=== PATIENT | female | born 1950 | race Caucasian/White ===

== ENCOUNTER 2017-06-08 14:13 | Inpatient (IN) | payer OTHER, MEDICARE ==
[~2017-06-08] VITALS: Ht 162.6 cm; Wt 52.5 kg
[2017-06-08] VITALS (11 sets, daily range): BP systolic 103–147; BP diastolic 77–97; PULSE 80–148; RESP 16–18; TEMP 97.8–98.3; O2SAT 96–100
[~2017-06-08 14:13] MED LIST: CIPR500T4 PO; HYDR-3533 PO; TAB-TAB PO
--- NOTE | 2017-06-08 14:24 | PD ---
Physical Exam Date Seen by Provider: Jun 08, 2017 Time Seen by Provider: 14:22 Narrative 66 yo female here for eval of atrial fibrillation. Send by Dr Castillo for this. had EKG in office that confirmed diagnosis. no history of this. Send here for eval. Feels dizzy and weak. + palpitations. Vitals are stable in triage with exception of elevated HR. Awaiting bed placement. Data Data Last Documented VS Vital Signs Date Time Temp Pulse Resp B/P (MAP) Pulse Ox O2 Delivery O2 Flow Rate FiO2 06/08/17 14:18 98.3 145 16 147/97 (114) 97 Room Air Orders Orders Electrocardiogram (06/08/17 14:20) Basic Metabolic Panel (Bmp) (06/08/17 14:20) Ckmb (Isoenzyme) Profile (06/08/17 14:20) Complete Blood Count With Diff (06/08/17 14:20) Magnesium (Mg) (06/08/17 14:20) Prothrombin Time / Inr (Pt) (06/08/17 14:20) Act Partial Throm Time (Ptt) (06/08/17 14:20) Troponin I (06/08/17 14:20) Chest, Single Ap (06/08/17 14:20) MDM Medical Record Reviewed: Yes Supervised Visit with TRAVIS: Leeroy Finney Jun 08, 2017 14:23
[2017-06-08] MEDS ORDERED: SODIUM CHLORIDE 0.9% FLUSH 5 ML FLUSH IV FLUSH PRN (15:00)
[2017-06-08] MEDS ORDERED: DILTIAZEM HCL 25 MG/5 ML VIAL IV PUSH ONE (15:00)
--- NOTE | 2017-06-08 15:08 | PD ---
HPI Chief Complaint: Cardiac Complaint Time Seen by Provider: 14:48 Travel History International Travel<30 days: No Contact w/Intl Traveler<30days: No Traveled to known affect area: No History of Present Illness HPI 66-year-old female presents with shortness of breath that has been present over the past 2 weeks and worsening. She went to her diesel mechanic farm for her scheduled appointment and was found to be in atrial fibrillation with RVR and referred here. Dr. hernandez is her diesel mechanic farm and she follows with him for her mitral valve issue. She denies any chest pain or other concurrent complaints. She denies prior history of atrial fibrillation. She feels worse when she moves around. She denies other modifying factors. Quality is atrial fibrillation. Severity is tachycardic in the 150s. PFSH Past Medical History Cancer: Yes (SKIN) Cardiovascular Problems: Yes Diabetes: No Diminished Hearing: No Endocrine: No Gastrointestinal Disorders: Yes (POLYPS) Genitourinary: No Hepatitis: No Hiatal Hernia: No Immune Disorder: No Musculoskeletal: No Neurologic: Yes (EPILEPSY HX (20YRS NO INCIDENT)) Psychiatric: No Reproductive: No Respiratory: No Immunizations Current: Yes Thyroid Disease: No ?: Not : 3 Para: 3 Past Surgical History Abdominal Surgery: Yes (COLLECTOMY) Body Medical Devices: BOVINE MITRAL VALVE Cardiac Surgery: Yes (MVR) Joint Replacement: Yes (RIGHT HIP) Other Surgery: Yes Social History Alcohol Use: Yes (OCC.) Tobacco Use: No (QUIT 2009) Substance Use: No Allergies-Medications (Allergen,Severity, Reaction): Coded Allergies: No Known Allergies (Unverified , 06/08/17) Reported Meds & Prescriptions Reported Meds & Active Scripts Active Reported Multi-Vitamin Daily (Multiple Vitamin) 1 Tab Tab 1 Tab PO DAILY Review of Systems Except as stated in HPI: all other systems reviewed are Neg Physical Exam Narrative GENERAL: Well-nourished, well-developed patient. Well-appearing SKIN: Warm and dry. HEAD: Normocephalic and atraumatic. EYES: No injection or drainage. ENT: No nasal drainage noted. NECK: Supple, trachea midline. CARDIOVASCULAR: irregular rate and rhythm RESPIRATORY: Breath sounds equal bilaterally. No accessory muscle use. GASTROINTESTINAL: Abdomen soft, non-tender, nondistended. EXTREMITIES: No edema. NEUROLOGICAL: Awake and alert. Motor and sensory grossly within normal limits. Normal speech. Data Data Last Documented VS Vital Signs Date Time Temp Pulse Resp B/P (MAP) Pulse Ox O2 Delivery O2 Flow Rate FiO2 06/08/17 16:39 98.0 80 17 103/80 (88) 99 Room Air Orders Orders Electrocardiogram (06/08/17 14:20) Basic Metabolic Panel (Bmp) (06/08/17 14:20) Ckmb (Isoenzyme) Profile (06/08/17 14:20) Complete Blood Count With Diff (06/08/17:20) Magnesium (Mg) (06/08/17 14:20) Prothrombin Time / Inr (Pt) (06/08/17:20) Act Partial Throm Time (Ptt) (06/08/17:20) Troponin I (06/08/17:20) Chest, Single Ap (06/08/17 14:20) Ecg Monitoring (06/08/17 14:49) Blood Pressure (06/08/17 14:49) Iv Access Insert/Monitor (06/08/17 14:49) Oximetry (06/08/17 14:49) Vital Signs (06/08/17 14:49) Diltiazem Inj (Cardizem Inj) (06/08/17 15:00) Sodium Chloride 0.9% Flush (Ns Flush) (06/08/17 15:00) Thyroid Stimulating Hormone (06/08/17 15:08) CKMB (06/08/17 15:20) CKMB% (06/08/17 15:20) Admit Order (Ed Use Only) (06/08/17 17:19) Labs Laboratory Tests Test 06/08/17 15:20 White Blood Count 6.4 TH/MM3 Red Blood Count 4.85 MIL/MM3 Hemoglobin 14.9 GM/DL Hematocrit 45.6 % Mean Corpuscular Volume 94.1 FL Mean Corpuscular Hemoglobin 30.8 PG Mean Corpuscular Hemoglobin Concent 32.7 % Red Cell Distribution Width 13.7 % Platelet Count 272 TH/MM3 Mean Platelet Volume 9.3 FL Neutrophils (%) (Auto) 63.0 % Lymphocytes (%) (Auto) 27.4 % Monocytes (%) (Auto) 7.6 % Eosinophils (%) (Auto) 1.4 % Basophils (%) (Auto) 0.6 % Neutrophils # (Auto) 4.0 TH/MM3 Lymphocytes # (Auto) 1.8 TH/MM3 Monocytes # (Auto) 0.5 TH/MM3 Eosinophils # (Auto) 0.1 TH/MM3 Basophils # (Auto) 0.0 TH/MM3 CBC Comment DIFF FINAL Differential Comment Prothrombin Time 11.1 SEC Prothromb Time International Ratio 1.0 RATIO Activated Partial Thromboplast Time 27.1 SEC Blood Urea Nitrogen 20 MG/DL Creatinine 0.83 MG/DL Random Glucose 90 MG/DL Calcium Level 9.2 MG/DL Magnesium Level 2.1 MG/DL Sodium Level 143 MEQ/L Potassium Level 4.4 MEQ/L Chloride Level 109 MEQ/L Carbon Dioxide Level 28.9 MEQ/L Anion Gap 5 MEQ/L Estimat Glomerular Filtration Rate 69 ML/MIN Total Creatine Kinase 107 U/L Creatine Kinase MB 1.4 NG/ML Troponin I LESS THAN 0.02 NG/ML Thyroid Stimulating Hormone 3rd Gen 1.530 uIU/ML MDM Medical Decision Making Medical Screen Exam Complete: Yes Emergency Medical Condition: Yes Medical Record Reviewed: Yes (past history confirmed) Interpretation(s) EKG is A. fib at 150 without STEMI criteria, T-wave inversion inferiorly CBC & BMP Diagram 06/08/17 15:20 Calcium Level 9.2, Magnesium Level 2.1 Last 24 hours Impressions Chest X-Ray 06/08/17 1420 Signed Impressions: Service Date/Time: Thursday, June 08, 2017 14:56 - CONCLUSION: 1. Cardiomegaly. No acute pulmonary disease. Marty Gonzalez MD Differential Diagnosis A. fib, SVT, sinus tachycardia, electrolyte abnormality Narrative Course Will check blood work, EKG, chest x-ray and dose of Cardizem and reevaluate After 1 dose of Cardizem heart rate is in the 70s. We'll discuss with her diesel mechanic farm Patient agrees to admission Physician Communication Physician Communication dr ron states in hospital can be on cardizem 30mg every [address] hernandez's note start heparin dr watson agrees to admit Diagnosis Primary Impression: Atrial fibrillation with RVR Clarissa Marshall MD Jun 08, 2017 15:08
[2017-06-08] MEDS ORDERED: MULT-65 PO (15:31)
--- NOTE | 2017-06-08 15:33 | RADRPT ---
EXAM DATE/TIME: 06/08/2017 14:56 [facility] COMPARISON: No previous studies available for comparison. INDICATIONS : Chest pain. MEDICAL HISTORY : None. SURGICAL HISTORY : Mitral valve replacement. ENCOUNTER: Initial ACUITY: 1 day PAIN SCORE: 3/10 LOCATION: Bilateral chest FINDINGS: The cardiac silhouette is normal in transverse diameter. Median sternotomy wires are present. The antoni gs are free of acute parenchymal opacity. No effusions are identified. The aortic knob is prominent w ith tortuosity of the descending thoracic aorta. CONCLUSION: 1. Cardiomegaly. No acute pulmonary disease. Marty Gonzalez MD on June 08, 2017 at 15:28 Board Certified Radiologist. This report was verified electronically.
[2017-06-08 15:57] LABS: BASOPHIL % 0.6 % (0.0-2.0); EOSINOPHIL # 0.1 TH/MM3 (0-0.4); EOSINOPHIL % 1.4 % (0.0-4.0); HEMATOCRIT 45.6 % (35.0-46.0); HEMO FLAGS DIFF FINAL; LYMPH % 27.4 % (9.0-44.0); LYMPHOCYTE # 1.8 TH/MM3 (1.0-4.8); MEAN CELL VOLUME 94.1 FL (80.0-100.0); MEAN CORPUSCULAR HEMOGLOBIN 30.8 PG (27.0-34.0); MEAN CORPUSCULAR HGB CONC 32.7 % (32.0-36.0); MONO % 7.6 % (0.0-8.0); PLATELET COUNT 272 TH/MM3 (150-450); RED BLOOD COUNT 4.85 MIL/MM3 (4.00-5.30); RED CELL DISTRIBUTION WIDTH 13.7 % (11.6-17.2); WHITE BLOOD COUNT 6.4 TH/MM3 (4.0-11.0)
[2017-06-08 16:10] LABS: APTT (PATIENT) 27.1 SEC (24.3-30.1); PROTHROMBIN TIME - PATIENT 11.1 SEC (9.8-11.6)
[2017-06-08 16:32] LABS: ANION GAP 5 MEQ/L (5-15); BICARBONATE 28.9 MEQ/L (21.0-32.0); BLOOD UREA NITROGEN 20 MG/DL (7-18); CHLORIDE 109 MEQ/L (98-107); GLOMERULAR FILTRATION RATE 69 ML/MIN (>89); MAGNESIUM 2.1 MG/DL (1.5-2.5); POTASSIUM 4.4 MEQ/L (3.5-5.1); SODIUM (NA) 143 MEQ/L (136-145)
[2017-06-08 16:35] LABS: CREATINE KINASE 107 U/L (26-192)
[2017-06-08 16:50] LABS: CKMB 1.4 NG/ML (0.5-3.6)
[2017-06-08] MEDS ORDERED: BISACODYL 10 MG SUPP RECTAL PRN (17:30)
[2017-06-08] MEDS ORDERED: HEPARIN SODIUM - IV 10,000 UNITS/10 ML VIAL IV PUSH ONE (17:30)
[2017-06-08] MEDS ORDERED: LACTULOSE SYRUP 20 GM/30 ML CUP PO PRN (17:30)
[2017-06-08] MEDS ORDERED: SODIUM CHLORIDE 0.9% FLUSH 10 ML FLUSH IV FLUSH PRN (17:30)
[2017-06-08] MEDS ORDERED: SENNOSIDES 8.6 MG TAB PO PRN (17:30)
[2017-06-08] MEDS ORDERED: MAGNESIUM HYDROXIDE SUSP 30 ML CUP PO PRN (17:30)
[2017-06-08] MEDS ORDERED: NALOXONE HCL 0.4 MG/ML AMP IV PUSH PRN (17:30)
[2017-06-08] MEDS: HEPARIN-D5W 25,000 U/250 ML 250 ML IV PRN (18:14)
--- NOTE | 2017-06-08 18:14 | HHI.HP ---
[facility] Service [facility] Primary Care Physician Carlos Johns MD Admission Diagnosis afib with rvr Diagnoses: Chief Complaint: SOB Travel History International Travel<30 Days: No Contact w/Intl Traveler <30 Da: No Traveled to Known Affected Are: No History of Present Illness This is a 66-year-old female past history of atrial premature beats, mitral insufficiency/prolapse, ventricular premature beats, history of colon polyps, history of melanoma, and migraines who presented with atrial fibrillation with RVR. Patient was seen by Dr. Castillo today and was told to go to the ED due to atrial fibrillation with RVR. Patient stated that she had shortness of breathing for the past 2 weeks that described as intermittent, occurring with exertion, worsening over the past 2 weeks. She denies any chest pain, palpitations, lightheadedness or dizziness. Patient was found to have RVR in the 140s in the emergency department and was given a dose of Cardizem which her heart rate became normal. Past Family Social History Past Medical History History of atrial premature beats, history of ventricular premature beat, migraines, history of melanoma, history of colon polyps, mitral sufficiency/ prolapse Past Surgical History Colectomy, bovine mitral valvular placement, right hip surgery Reported Medications Multi-Vitamin Daily (Multiple Vitamin) 1 Tab Tab 1 Tab PO DAILY Allergies: Coded Allergies: No Known Allergies (Unverified , 06/08/17) Active Ordered Medications Current Medications Diltiazem HCl (Cardizem Inj) 14 mg BOLUS ONCE IV PUSH Last administered on 15:06; Start 06/08/17 at 15:00; Stop 06/08/17 at 15:01; Status DC IV Flush (NS Flush) 2 ml UNSCH PRN IV FLUSH FLUSH AFTER USING IV ACCESS Last administered on 06/08/17 15:07; Start 06/08/17 at 15:00 Heparin Sodium (Porcine) (Heparin Inj) 3,420 units ONCE ONCE IV PUSH ; Start 06/08/17 at 17:30; Stop 06/08/17 at 17:31; Status DC Heparin Sodium (Porcine) (Heparin Inj) 5,000 units UNSCH PRN IV PUSH APTT LESS THAN 25; Start 06/08/17 at 23:30 Heparin Sodium (Porcine) (Heparin Inj) 2,500 units UNSCH PRN IV PUSH APTT 25 TO 39; Start 06/08/17 at 23:30 Heparin Sodium/ Dextrose 250 ml @ 7 mls/hr TITRATE PRN IV Coagulation management; Start 06/08/17 at 17:30 Sodium Chloride (NS Flush) 2 ml UNSCH PRN IV FLUSH FLUSH AFTER USING IV ACCESS ; Start 06/08/17 at 17:30 Sodium Chloride (NS Flush) 2 ml BID IV FLUSH ; Start 06/08/17 at 21:00 Naloxone HCl (Narcan Inj) 0.4 mg UNSCH PRN IV PUSH SEE LABEL COMMENTS; Start 06/08/17 at 17:30 Senna/Docusate Sodium (Altagracia-Colace) 1 tab BID PO ; Start 06/08/17 at 21:00 Magnesium Hydroxide (Milk Of Magnesia Liq) 30 ml Q12H PRN PO MILD - MODERATE CONSTIPATION; Start 06/08/17 at 17:30 Sennosides (Senokot) 17.2 mg Q12H PRN PO MODERATE - SEVERE CONSTIPATION; Start 06/08/17 at 17:30 Bisacodyl (Dulcolax Supp) 10 mg DAILY PRN RECTAL SEVERE CONSITIPATION; Start 06/08/17 at 17:30 Lactulose (Lactulose Liq) 30 ml DAILY PRN PO SEVERE CONSITIPATION; Start 06/08 at 17:30 Family History Reviewed. Social History Patient stopped smoking 2009. Occasional drink alcohol. Denies any illicit drug use. Physical Exam Vital Signs Vital Signs Date Time Temp Pulse Resp B/P (MAP) Pulse Ox O2 Delivery O2 Flow Rate FiO2 06/08/17 16:39 98.0 80 17 103/80 (88) 99 Room Air 06/08/17 15:14 84 17 112/85 (94) 98 Room Air 06/08/17 15:05 97.8 148 17 120/94 (103) 100 Room Air 06/08/17 15:05 17 99 Room Air 06/08/17 15:05 17 98 Room Air 06/08/17 15:05 148 17 98 Room Air 06/08/17 14:18 98.3 145 16 147/97 (385) 97 Room Air Physical Exam GENERAL: This is a well-nourished, well-developed patient, in no apparent distress. SKIN: No rashes, ecchymoses or lesions. Cool and dry. HEAD: Atraumatic. Normocephalic. No temporal or scalp tenderness. EYES: Pupils equal round and reactive. Extraocular motions intact. No scleral icterus. No injection or drainage. ENT: Nose without bleeding, purulent drainage or septal hematoma. Throat without erythema, tonsillar hypertrophy or exudate. Uvula midline. Airway patent. NECK: Trachea midline. No JVD or lymphadenopathy. Supple, nontender, no meningeal signs. CARDIOVASCULAR: Irregular rate and irregular rhythm without murmurs, gallops, or rubs. RESPIRATORY: Clear to auscultation. Breath sounds equal bilaterally. No wheezes , rales, or rhonchi. GASTROINTESTINAL: Abdomen soft, non-tender, nondistended. No hepato-splenomegaly , or palpable masses. No guarding. MUSCULOSKELETAL: Extremities without clubbing, cyanosis, or edema. No joint tenderness, effusion, or edema noted. No calf tenderness. Negative Homans sign bilaterally. NEUROLOGICAL: Awake and alert. Cranial nerves II through XII intact. Motor and sensory grossly within normal limits. Five out of 5 muscle strength in all muscle groups. Normal speech. Laboratory Laboratory Tests Test 06/08/17 15:20 White Blood Count 6.4 Red Blood Count 4.85 Hemoglobin 14.9 Hematocrit 45.6 Mean Corpuscular Volume 94.1 Mean Corpuscular Hemoglobin 30.8 Mean Corpuscular Hemoglobin Concent 32.7 Red Cell Distribution Width 13.7 Platelet Count 272 Mean Platelet Volume 9.3 Neutrophils (%) (Auto) 63.0 Lymphocytes (%) (Auto) 27.4 Monocytes (%) (Auto) 7.6 Eosinophils (%) (Auto) 1.4 Basophils (%) (Auto) 0.6 Neutrophils # (Auto) 4.0 Lymphocytes # (Auto) 1.8 Monocytes # (Auto) 0.5 Eosinophils # (Auto) 0.1 Basophils # (Auto) 0.0 CBC Comment DIFF FINAL Differential Comment Prothrombin Time 11.1 Prothromb Time International Ratio 1.0 Activated Partial Thromboplast Time 27.1 Blood Urea Nitrogen 20 Creatinine 0.83 Random Glucose 90 Calcium Level 9.2 Magnesium Level 2.1 Sodium Level 143 Potassium Level 4.4 Chloride Level 109 Carbon Dioxide Level 28.9 Anion Gap 5 Estimat Glomerular Filtration Rate 69 Total Creatine Kinase 107 Creatine Kinase MB 1.4 Troponin I LESS THAN 0.02 Thyroid Stimulating Hormone 3rd Gen 1.530 Result Diagram: 06/08/17 15206/08/171519 Nurarini VTE Risk Assessment Caprini VTE Risk Assessment: Mod/High Risk (score >= 2) Caprini Risk Assessment Model Point Value = 1 Point Value = 2 Point Value = 3 Point Value = 5 Age 41-60 Minor surgery BMI > 25 kg/m2 Swollen legs Varicose veins or History of unexplained or recurrent spontaneous Oral contraceptives or hormone replacement Sepsis (< 1 month) Serious lung disease, including pneumonia (< 1 month) Abnormal pulmonary function Acute myocardial infarction Congestive heart failure (< 1 month) History of inflammatory bowel disease Medical patient at bed rest Age 61-74 Arthroscopic surgery Major open surgery (> 45 min) Laparoscopic surgery (> 45 min) Malignancy Confined to bed (> 72 hours) Immobilizing plaster cast Central venous access Age >= 75 History of VTE Family history of VTE Factor V Leiden Prothrombin [id number] Lupus anticoagulant Anticardiolipin antibodies Elevated serum homocysteine Heparin-induced thrombocytopenia Other congenital or acquired thrombophilia Stroke (< 1 month) Elective arthroplasty Hip, pelvis, or leg fracture Acute spinal cord injury (< 1 month) Prophylaxis Regimen Total Risk Factor Score Risk Level Prophylaxis Regimen 0-1 Low Early ambulation 2 Moderate Order ONE of the following: *Sequential Compression Device (SCD) *Heparin 5000 units SQ BID 3-4 Higher Order ONE of the following medications: *Heparin 5000 units SQ TID *Enoxaparin/Lovenox 40 mg SQ daily (WT < 150 kg, CrCl > 30 mL/min) *Enoxaparin/Lovenox 30 mg SQ daily (WT < 150 kg, CrCl > 10-29 mL/min) *Enoxaparin/Lovenox 30 mg SQ BID (WT < 150 kg, CrCl > 30 mL/min) AND/OR *Sequential Compression Device (SCD) 5 or more Highest Order ONE of the following medications: *Heparin 5000 units SQ TID (Preferred with Epidurals) *Enoxaparin/Lovenox 40 mg SQ daily (WT < 150 kg, CrCl > 30 mL/min) *Enoxaparin/Lovenox 30 mg SQ daily (WT < 150 kg, CrCl > 10-29 mL/min) *Enoxaparin/Lovenox 30 mg SQ BID (WT < 150 kg, CrCl > 30 mL/min) AND *Sequential Compression Device (SCD) Assessment and Plan Assessment and Plan This is 66-year-old female who presented with intermittent dyspnea for the past 2 weeks done atrial fibrillation with RVR Atrial fibrillation with RVR -Patient given a dose of Cardizem in the ED in which her rate became normal. First set of cardiac enzymes negative. -Will get 2 more sets of cardiac enzymes and echo. Monitor over telemetry. -Per Dr. Tenorio start patient on Cardizem 30 mg every [address] Jonathan baptiste patient on a heparin drip. -Consult placed for client service consultant. Intermittent dyspnea -Chest x-ray shows cardiomegaly. Patient is not hypoxic. Resolved when her heart rate was controlled. Most likely secondary to age fibrillation with RVR. -See treatment as above. -Will continue monitor clinically. DVT prophylaxis -Patient will be on a heparin drip. Patient educated extensively on diagnosis, prognosis, and management. Discussed Condition With patient Physician Certification 2 Midnight Certification Type: Admission for Inpatient Services Order for Inpatient Services The services are ordered in accordance with Medicare regulations or non- Medicare payer requirements, as applicable. In the case of services not specified as inpatient-only, they are appropriately provided as inpatient services in accordance with the 2-midnight benchmark. Estimated LOS (days): 2 2 days is the estimated time the patient will need to remain in the hospital, assuming treatment plan goals are met and no additional complications. Post-Hospital Plan: Merna Pires MD Jun 08, 2017 18:14
[2017-06-08] MEDS: SODIUM CHLORIDE 0.9% FLUSH 10 ML FLUSH IV FLUSH SCH (21:00)
[2017-06-08] MEDS: DOCUSATE SODIUM 50 MG/SENNA 8.6 MG TAB PO SCH (21:00)
[2017-06-08] MEDS ORDERED: HEPARIN SODIUM - IV 10,000 UNITS/10 ML VIAL IV PUSH PRN ×2 (23:30)
[2017-06-09] VITALS (25 sets, daily range): BP systolic 109–148; BP diastolic 72–103; PULSE 62–114; RESP 18–20; TEMP 97.7–98.1; O2SAT 93–97
[2017-06-09 00:20] LABS: APTT (PATIENT) 66.3 SEC (24.3-30.1)
[2017-06-09 00:46] LABS: CREATINE KINASE 72 U/L (26-192)
[2017-06-09 06:27] LABS: APTT (PATIENT) 55.5 SEC (24.3-30.1)
[2017-06-09] MEDS: SODIUM CHLORIDE 0.9% FLUSH 10 ML FLUSH IV FLUSH SCH ×2 (08:02→21:00)
[2017-06-09] MEDS: DOCUSATE SODIUM 50 MG/SENNA 8.6 MG TAB PO SCH ×2 (08:02→21:00)
--- NOTE | 2017-06-09 10:30 | HHI.PR ---
Subjective Remarks Follow-up for age of fibrillation with RVR This morning patient had heart rate in the 140s. She was very upset and did not know that she would be in the hospital this long. She stated that if she knew she was going to be in the hospital for this long she would have made arrangement for her pets. Patient stated that she is upset that she did not get her echo done last night after being told by the ER that she would have this done. She stated that being in the hospital is making her more anxious and is not good for her health. Patient stated that if she is not see a dealer account manager soon she will leave. Patient's nurse is at the bedside during the interview. She denies any chest pain, palpitation, shortness of breathing, lightheadedness/ dizziness. Objective Vitals Vital Signs Date Time Temp Pulse Resp B/P (MAP) Pulse Ox O2 Delivery O2 Flow Rate FiO2 06/09/17 08:09 97.8 97 20 148/85 (106) 96 06/09/17 07:37 92 06/09/17 06:00 88 06/09/17 05:00 78 06/09/17 04:00 74 06/09/17 03:00 91 06/09/17 03:00 97.9 95 18 133/92 (106) 95 06/09/17 02:00 81 06/09/17 01:00 88 06/09/17 00:00 79 06/08/17 23:00 86 06/08/17 23:00 98.1 91 18 136/97 (110) 96 06/08/17 22:00 82 06/08/17 21:11 91 18 121/83 (96) 98 06/08/17 21:00 88 06/08/17 20:00 98 06/08/17 19:00 92 06/08/17 18:30 97.8 81 16 109/77 (88) 98 06/08/17 16:39 98.0 80 17 103/80 (88) 99 Room Air 06/08/17 15:14 84 17 112/85 (94) 98 Room Air 06/08/17 15:05 97.8 148 17 120/94 (103) 100 Room Air 06/08/17 15:05 17 99 Room Air 06/08/17 15:05 17 98 Room Air 06/08/17 15:05 148 17 98 Room Air 06/08/17 14:18 98.3 145 16 147/97 (114) 97 Room Air I/O 06/08/17 06/08/17 06/08/17 06/09/17 06/09/17 06/09/17 07:00 15:00 23:00 07:00 15:00 23:00 Intake Total 280 ml Balance 280 ml Intake Oral 280 ml # Voids 3 Result Diagram: 06/08/17 1520 06/08/17 1520 Objective Remarks GENERAL: in NAD but very anxious and upset. CARDIOVASCULAR: Irregular rate irregular rhythm without murmurs, gallops, or rubs. RESPIRATORY: Breath sounds equal bilaterally. No accessory muscle use. GASTROINTESTINAL: Abdomen soft, non-tender, nondistended. MUSCULOSKELETAL: No cyanosis, or edema. BACK: Nontender without obvious deformity. No CVA tenderness. Medications and IVs Current Medications Diltiazem HCl (Cardizem Inj) 14 mg BOLUS ONCE IV PUSH Last administered on 15:06; Start 06/08/17 at 15:00; Stop 06/08/17 at 15:01; Status DC IV Flush (NS Flush) 2 ml UNSCH PRN IV FLUSH FLUSH AFTER USING IV ACCESS Last administered on 06/08/17 15:07; Start 06/08/17 at 15:00 Heparin Sodium (Porcine) (Heparin Inj) 3,420 units ONCE ONCE IV PUSH Last administered on 06/08/17 18:12; Start 06/08/17 at 17:30; Stop 06/08/17 at 17 :31; Status DC Heparin Sodium (Porcine) (Heparin Inj) 5,000 units UNSCH PRN IV PUSH APTT LESS THAN 25; Start 06/08/17 at 23:30 Heparin Sodium (Porcine) (Heparin Inj) 2,500 units UNSCH PRN IV PUSH APTT 25 TO 39; Start 06/08/17 at 23:30 Heparin Sodium/ Dextrose 250 ml @ 7 mls/hr TITRATE PRN IV Coagulation management Last administered on 06/08/17 18:14; Start 06/08/17 at 17:30 Sodium Chloride (NS Flush) 2 ml UNSCH PRN IV FLUSH FLUSH AFTER USING IV ACCESS ; Start 06/08/17 at 17:30 Sodium Chloride (NS Flush) 2 ml BID IV FLUSH ; Start 06/08/17 at 21:00 Naloxone HCl (Narcan Inj) 0.4 mg UNSCH PRN IV PUSH SEE LABEL COMMENTS; Start 06/08/17 at 17:30 Senna/Docusate Sodium (Altagracia-Colace) 1 tab BID PO ; Start 06/08/17 at 21:00 Magnesium Hydroxide (Milk Of Magnesia Liq) 30 ml Q12H PRN PO MILD - MODERATE CONSTIPATION; Start 06/08/17 at 17:30 Sennosides (Senokot) 17.2 mg Q12H PRN PO MODERATE - SEVERE CONSTIPATION; Start 06/08/17 at 17:30 Bisacodyl (Dulcolax Supp) 10 mg DAILY PRN RECTAL SEVERE CONSITIPATION; Start 06/08/17 at 17:30 Lactulose (Lactulose Liq) 30 ml DAILY PRN PO SEVERE CONSITIPATION; Start 06/08 at 17:30 A/P Assessment and Plan This is 66-year-old female who presented with intermittent dyspnea for the past 2 weeks done atrial fibrillation with RVR Atrial fibrillation with RVR -Patient given a dose of Cardizem in the ED in which her rate became normal. So far cardiac enzymes negative. Pending 2-D echo. -Telemetry showed patient had tachycardia in the 140s around 9. -Patient on Cardizem scheduled. She is on heparin drip per recommendations of dealer account manager. -Pending dealer account manager's recommendation. Intermittent dyspnea -Chest x-ray shows cardiomegaly. Patient is not hypoxic. Resolved when her heart rate was controlled. Most likely secondary to age fibrillation with RVR. -See treatment as above. -Will continue monitor clinically. DVT prophylaxis -Patient will be on a heparin drip. Discussed with patient's nurse. A call was placed to echo to try to expedite completion of ECHO and a call was placed out to dealer account manager. Patient educated extensively on her diagnosis, management and prognosis. Merna Franklin MD Jun 09, 2017 10:30
[2017-06-09] MEDS ORDERED: ASPIRIN EC 325 MG TABEC PO SCH (13:45)
--- NOTE | 2017-06-09 14:01 | MB ---
cc: BRAD CASTILLO M.D., GLENN H. M.D. DATE OF CONSULTATION: 06/09/2017 REASON FOR CONSULTATION Atrial fibrillation. HISTORY OF PRESENT ILLNESS The patient is a 66-year-old white female, followed in our office by Dr. Brad Castillo, with a history of mitral valve repair 2009 for severe mitral regurgitation, migraine headaches, melanoma, rheumatic fever, who was sent to the hospital from Dr. Castillo's office yesterday after she was found to be in atrial fibrillation with a rapid ventricular response. For the past 2 weeks she has noted increased dyspnea on exertion as well as intermittent racing pounding palpitations with exertion. She denies any chest pains, syncope, nearsyncope, pedal edema. At times she feels mildly lightheaded for a few seconds. For the most part she is very active. PAST MEDICAL HISTORY 1. History of mitral valve repair 2009 for severe mitral regurgitation. 2. Migraine headaches. 3. History of malignant melanoma. 4. History of rheumatic fever. MEDICATIONS Her cardiac medications at home are none. ALLERGIES No known drug allergies. FAMILY HISTORY Noncontributory. SOCIAL HISTORY The patient quit smoking about 7 years ago. She denies alcohol abuse. REVIEW OF SYSTEMS Review of systems as in the history of present illness, otherwise negative or noncontributory. She also denies melena, dyspepsia, bright red blood per rectum. Occasionally she experiences mild headaches. PHYSICAL EXAMINATION VITAL SIGNS: On physical examination her blood pressure is 148/85 with a pulse of 97, respirations 20. GENERAL: In general she is a well-developed thin white female in no acute distress. HEENT/NECK: Jugular venous pressure is normal. Carotid pulses are 2+ bilaterally without bruits. CHEST: Examination of the chest reveals unlabored respiratory effort with clear lung billings. CARDIAC: On cardiac examination she has an irregularly irregular rhythm without S3 or murmur. ABDOMEN: On abdominal examination she has a soft, nontender abdomen. Bowel sounds are present. There is no definite hepatosplenomegaly. EXTREMITIES: Examination of the extremities reveals no clubbing, cyanosis or edema. LABORATORY Laboratory data includes normal CBC, potassium 4.4, BUN 20, creatinine 0.83, CK 107, troponin less than 0.02, TSH 1.53, INR 1.0. IMAGING Chest x-ray shows no acute disease. EKG EKG shows atrial fibrillation with a rapid ventricular response, nonspecific inferior T-wave abnormalities, rightward axis. IMPRESSION Newly diagnosed atrial fibrillation in this 66-year-old white female with a history of rheumatic mitral valve disease, status post mitral valve repair about 7 years ago and history of migraine headaches. At this time she remains in atrial fibrillation, although with much improved heart rates. There is no definite evidence for acute coronary syndrome. No ischemic ST-segment or T-wave changes are seen on EKG. Cardiac enzymes are negative for myocardial infarction. Echocardiogram is pending. With respect to her thromboembolic risk, it is probably overall low although she does have a history of rheumatic valvular disease. The patient denies any history of hypertension, diabetes, CVA, congestive heart failure. RECOMMENDATIONS 1. Start oral Cardizem 240 mg daily. 2. Await her 2-D echo. MD CONY Jackson/JOSIANE /1:25 PM /1:47 PM MTDTamara
[2017-06-09] MEDS: DILTIAZEM-CD 240 MG CAP ER PO SCH (14:45)
--- NOTE | 2017-06-09 17:43 | ECHRPT ---
Indication: Atrial Fib CONCLUSIONS The left ventricular systolic function is low normal with an estimated ejection fraction of 50%. Normal left ventricular size. Wall thickness is normal. No regional wall motion abnormalities are present. Severe thickening of the mitral valve leaflets. Mild mitral valve regurgitation. . Mild mitral valve stenosis. Aortic valve sclerosis is present. Trace aortic valve regurgitation. There is mild tricuspid valve regurgitation. The estimated pulmonary arterial pressure is 26 mmHg. Trivial pulmonary valve regurgitation. BP: 133 / 92 HR: 95 Rhythm: Sinus MEASUREMENTS (Male / Female) Normal Values Technical Quality:Good 2D ECHO LV Diastolic Diameter PLAX 4.2 cm 4.2 - 5.9 / 3.9 - 5.3 cm LV Systolic Diameter PLAX 3.0 cm IVS Diastolic Thickness 1.0 cm 0.6 - 1.0 / 0.6 - 0.9 cm LVPW Diastolic Thickness 1.0 cm 0.6 - 1.0 / 0.6 - 0.9 cm LV Relative Wall Thickness 0.5 RV Internal Dim ED PLAX 2.5 cm LVOT Diameter 2.0 cm LV Ejection Fraction MOD 4C 53.5 % LV Cardiac Index MOD 4C 2391.5 cm/minm LV Ejection Fraction 4C AL 56.0 % LV Cardiac Index 4C AL 2590.7 cm/minm M-MODE Aortic Root Diameter MM 3.0 cm LA Systolic Diameter MM 3.4 cm LA Ao Ratio MM 1.1 AV Cusp Separation MM 1.7 cm DOPPLER AV Peak Velocity 107.0 cm/s AV Peak Gradient 4.6 mmHg LVOT Peak Velocity 26.3 cm/s LVOT Peak Gradient 0.3 mmHg AV Area Cont Eq pk 0.8 cm MV Peak Velocity 193.0 cm/s MV Peak Gradient 14.9 mmHg MV Mean Velocity 99.8 cm/s MV Mean Gradient 5.0 mmHg MV Area PHT 2.1 cm LV E' Lateral Velocity 3.1 cm/s LV E' Septal Velocity 6.1 cm/s TR Peak Velocity 202.0 cm/s TR Peak Gradient 16.3 mmHg Right Atrial Pressure 10.0 mmHg Pulmonary Artery Systolic Pressu 26.3 mmHg Right Ventricular Systolic Press 26.3 mmHg PV Peak Velocity 67.9 cm/s PV Peak Gradient 1.8 mmHg FINDINGS LEFT VENTRICLE The left ventricular systolic function is low normal with an estimated ejection fraction of 50%. Normal left ventricular size. Wall thickness is normal. No regional wall motion abnormalities are present. MITRAL VALVE Severe thickening of the mitral valve leaflets. Mild mitral valve regurgitation. Mitral valve mean gradient is 5 mmHg. The mitral valve area by Pressure Halftime Method is 1.95 cm. Mild mitral valve stenosis. AORTIC VALVE Aortic valve sclerosis is present. Trace aortic valve regurgitation. TRICUSPID VALVE There is mild tricuspid valve regurgitation. The estimated pulmonary arterial pressure is 26.3 mmHg. PULMONARY VALVE Trivial pulmonary valve regurgitation. Seamus Putnam MD, FACC (Electronically Signed) Final Date:09 June 2017 17:43
[2017-06-10] VITALS (12 sets, daily range): BP systolic 108–133; BP diastolic 73–78; PULSE 55–94; RESP 18–20; TEMP 97.8–98.1; O2SAT 95–96
--- NOTE | 2017-06-10 | EKG ---
Date Performed: 06/08/2017 Time Performed: 14:31:27 PTAGE: 66 years EKG: ATRIAL FIBRILLATION WITH RAPID VENTRICULAR RESPONSE BORDERLINE RIGHT AXIS DEVIATION NONSPEC IFIC ST & T-WAVE ABNORMALITY ABNORMAL ECG PREVIOUS TRACING : 01/28/2016 10.21 Compared to the previous tracing, now noted to be in Afib w ith RVR DOCTOR: Pete Tenorio Interpretating Date/Time 06/09/2017 23:59:11
[2017-06-10] MEDS: HEPARIN-D5W 25,000 U/250 ML 250 ML IV PRN (06:42)
[2017-06-10 06:48] LABS: APTT (PATIENT) 38.4 SEC (24.3-30.1)
[2017-06-10] MEDS ORDERED: ACETAMINOPHEN 325 MG TAB PO PRN (07:00)
--- NOTE | 2017-06-10 08:07 | PD.CARD.PN ---
Subjective Subjective Remarks Feels "great". No dyspnea, dizziness, palpitations, CP. Objective Medications Item Value Date Time Aspirin 325 mg 06/09/17 1345 (Ecotrin Ec) DAILY/PO 06/09/17 1444 Diltiazem HCl 240 mg 06/09/17 1345 (Cardizem Cd) DAILY/PO 06/09/17 1445 Heparin Sodium/ 250 ml @ 7 mls/hr 06/08/17 1730 Dextrose TITRATE PRN/IV 06/10/17 0642 Current Medications Medications (Trade) Dose Ordered Sig/Mike Route Start Time Stop Time Status Last Admin (NS Flush) 2 ml UNSCH PRN IV FLUSH 06/08/17 15:00 06/08/17 15:07 (Heparin Inj) 5,000 units UNSCH PRN IV PUSH 06/08/17 23:30 (Heparin Inj) 2,500 units UNSCH PRN IV PUSH 06/08/17 23:30 Heparin Sodium/ Dextrose 250 ml @ 7 mls/hr TITRATE PRN IV 06/08/17 17:30 06/10/17 06:42 (NS Flush) 2 ml UNSCH PRN IV FLUSH 06/08/17 17:30 (NS Flush) 2 ml BID IV FLUSH 06/08/17 21:00 (Narcan Inj) 0.4 mg UNSCH PRN IV PUSH 06/08/17 17:30 (Altagracia-Colace) 1 tab BID PO 06/08/17 21:00 (Milk Of Magnesia Liq) 30 ml Q12H PRN PO 06/08/17 17:30 (Senokot) 17.2 mg Q12H PRN PO 06/08/17 17:30 (Dulcolax Supp) 10 mg DAILY PRN RECTAL 06/08/17 17:30 (Lactulose Liq) 30 ml DAILY PRN PO 06/08/17 17:30 (Ecotrin Ec) 325 mg DAILY PO 06/09/17 13:45 06/09/17 14:44 (Cardizem Cd) 240 mg DAILY PO 06/09/17 13:45 06/09/17 14:45 (Tylenol) 650 mg Q4H PRN PO 06/10/17 07:00 06/10/17 07:06 Vital Signs / I&O Vital Signs Date Time Temp Pulse Resp B/P (MAP) Pulse Ox O2 Delivery O2 Flow Rate FiO2 06/10/17 06:10 64 06/10/17 05:01 62 06/10/17 04:01 63 06/10/17 03:01 98.1 64 18 108/73 (85) 95 06/10/17 03:01 67 06/10/17 02:01 55 06/10/17 01:01 58 06/10/17 00:01 70 06/09/17 23:01 06/09/17 23:01 70 06/09/17 22:01 64 06/09/17 21:01 62 06/09/17 20:01 69 06/09/17 19:01 98.1 67 18 109/72 (84) 93 06/09/17 19:01 73 06/09/17 18:00 114 06/09/17 17:00 102 06/09/17 16:00 106 06/09/17 15:00 88 06/09/17 15:00 97.7 99 20 139/103 (115) 96 06/09/17 14:00 104 06/09/17 13:00 96 06/09/17 12:00 102 06/09/17 11:00 110 06/09/17 11:00 98.1 91 18 125/86 (99) 97 06/09/17 10:00 112 06/09/17 09:00 96 06/09/17 08:09 97.8 97 20 148/85 (106) 96 I/O 06/09/17 06/09/17 06/09/17 06/10/17 06/10/17 06/10/17 07:00 15:00 23:00 07:00 15:00 23:00 Intake Total 280 ml 660 ml 240 ml 70 ml Output Total 1 ml Balance 280 ml 659 ml 240 ml 70 ml Intake Oral 280 ml 500 ml 240 ml IV Total 160 ml 70 ml Output Stool Total 1 ml # Voids 3 3 4 # Bowel Movements 0 Physical Exam GENERAL: Well developed, well nourished. No acute distress. HEENT: Jugular venous pressure is normal. CHEST: Lungs clear to auscultation bilaterally. Unlabored respiratory effort. CARDIAC: Irregular rate and rhythm without S3, S4, or murmur. ABDOMEN: Soft, nontender, no hepatosplenomegaly. Bowel sounds present. EXTREMITIES: No clubbing, cyanosis, or edema. Laboratory Laboratory Tests Test 06/10/17 05:48 Activated Partial Thromboplast Time 38.4 SEC Assessment and Plan Problem List: (1) Paroxysmal atrial fibrillation ICD Codes: I48.0 - Paroxysmal atrial fibrillation Status: Acute Plan: Stable overnight. Asymptomatic. HR's under good control on oral Cardizem. Discussed case with patient's student admissions clerk Dr. Castillo. Patient basically CHADS VASc zero, but in light of her history of mitral disease, and some degree of mitral stenosis on echo, will treat her with Eliquis. REC OK to discharge home, stop heparin, start Eliquis, continue Cardizem CD, patient has 2 week f/u with Dr. Castillo (2) History of mitral valve repair ICD Codes: Z98.890 - Other specified postprocedural states Status: Chronic Plan: Mitral regurgitation and stenosis on echo yesterday mild in severity. Code Status full code Discussed Condition With patient Carmelo Armenta MD Jun 10, 2017 08:07
[2017-06-10] MEDS: DOCUSATE SODIUM 50 MG/SENNA 8.6 MG TAB PO SCH (08:53)
[2017-06-10] MEDS: SODIUM CHLORIDE 0.9% FLUSH 10 ML FLUSH IV FLUSH SCH (08:54)
[2017-06-10] MEDS: DILTIAZEM-CD 240 MG CAP ER PO SCH (08:54)
[2017-06-10] MEDS ORDERED: APIX5TAB PO (08:57)
[2017-06-10] MEDS ORDERED: CARD240C6 PO (08:57)
--- NOTE | 2017-06-10 08:59 | HHI.DCPOC ---
Discharge Care Plan Diagnosis: (1) Atrial fibrillation with RVR Goals to Promote Your Health * To prevent worsening of your condition and complications * To maintain your health at the optimal level Directions to Meet Your Goals Take your medications as prescribed Follow your dietary instruction Follow activity as directed Keep your appointments as scheduled Take your immunizations and boosters as scheduled If your symptoms worsen call your PCP, if no PCP go to Urgent Care Center or Emergency Room Smoking is Dangerous to Your Health. Avoid second hand smoke Call the 24-hour hour crisis hotline for domestic abuse at Merna Franklin MD Jun 10, 2017 08:59
--- NOTE | 2017-06-10 08:59 | HHI.DS ---
Discharge Summary Admission Date Jun 08, 2017 at 17:20 Discharge Date: Jun 10, 2017 Admitting Diagnosis afib with rvr (1) Atrial fibrillation with rapid ventricular response ICD Code: I48.91 - Unspecified atrial fibrillation Diagnosis: Principal Procedures See hospital course. Brief History - From Admission This is a 66-year-old female past history of atrial premature beats, mitral insufficiency/prolapse, ventricular premature beats, history of colon polyps, history of melanoma, and migraines who presented with atrial fibrillation with RVR. Patient was seen by Dr. Castillo today and was told to go to the ED due to atrial fibrillation with RVR. Patient stated that she had shortness of breathing for the past 2 weeks that described as intermittent, occurring with exertion, worsening over the past 2 weeks. She denies any chest pain, palpitations, lightheadedness or dizziness. Patient was found to have RVR in the 140s in the emergency department and was given a dose of Cardizem which her heart rate became normal. CBC/BMP: 06/08/17 1520 06/08/17 1520 Significant Findings Laboratory Tests Test 06/08/17 15:20 06/08/17 23:23 06/09/17 06:05 06/10/17 05:48 Blood Urea Nitrogen 20 MG/DL (7-18) Chloride Level 109 MEQ/L (98-107) Estimat Glomerular Filtration Rate 69 ML/MIN (>89) Troponin I LESS THAN 0.02 NG/ML LESS THAN 0.02 NG/ML Activated Partial Thromboplast Time 66.3 SEC (24.3-30.1) 55.5 SEC (24.3-30.1) 38.4 SEC (24.3-30.1) Imaging Current Medications Diltiazem HCl (Cardizem Inj) 14 mg BOLUS ONCE IV PUSH Last administered on 15:06; Start 06/08/17 at 15:00; Stop 06/08/17 at 15:01; Status DC IV Flush (NS Flush) 2 ml UNSCH PRN IV FLUSH FLUSH AFTER USING IV ACCESS Last administered on 06/08/17 15:07; Start 06/08/17 at 15:00; Stop 06/10/17 at 09 :58; Status DC Heparin Sodium (Porcine) (Heparin Inj) 3,420 units ONCE ONCE IV PUSH Last administered on 06/08/17 18:12; Start 06/08/17 at 17:30; Stop 06/08/17 at 17 :31; Status DC Heparin Sodium (Porcine) (Heparin Inj) 5,000 units UNSCH PRN IV PUSH APTT LESS THAN 25; Start 06/08/17 at 23:30; Stop 06/10/17 at 08:09; Status DC Heparin Sodium (Porcine) (Heparin Inj) 2,500 units UNSCH PRN IV PUSH APTT 25 TO 39; Start 06/08/17 at 23:30; Stop 06/10/17 at 08:09; Status DC Heparin Sodium/ Dextrose 250 ml @ 7 mls/hr TITRATE PRN IV Coagulation management Last administered on 06/10/17 06:42; Start 06/08/17 at 17:30; Stop 06/10/17 at 08:09; Status DC Sodium Chloride (NS Flush) 2 ml UNSCH PRN IV FLUSH FLUSH AFTER USING IV ACCESS ; Start 06/08/17 at 17:30; Stop 06/10/17 at 09:58; Status DC Sodium Chloride (NS Flush) 2 ml BID IV FLUSH Last administered on 06/10/17 08 :54; Start 06/08/17 at 21:00; Stop 06/10/17 at 09:58; Status DC Naloxone HCl (Narcan Inj) 0.4 mg UNSCH PRN IV PUSH SEE LABEL COMMENTS; Start 06/08/17 at 17:30; Stop 06/10/17 at 09:58; Status DC Senna/Docusate Sodium (Altagracia-Colace) 1 tab BID PO ; Start 06/08/17 at 21:00; Stop 06/10/17 at 09:58; Status DC Magnesium Hydroxide (Milk Of Magnesia Liq) 30 ml Q12H PRN PO MILD - MODERATE CONSTIPATION; Start 06/08/17 at 17:30; Stop 06/10/17 at 09:58; Status DC Sennosides (Senokot) 17.2 mg Q12H PRN PO MODERATE - SEVERE CONSTIPATION; Start 06/08/17 at 17:30; Stop 06/10/17 at 09:58; Status DC Bisacodyl (Dulcolax Supp) 10 mg DAILY PRN RECTAL SEVERE CONSITIPATION; Start 06/08/17 at 17:30; Stop 06/10/17 at 09:58; Status DC Lactulose (Lactulose Liq) 30 ml DAILY PRN PO SEVERE CONSITIPATION; Start 06/08 at 17:30; Stop 06/10/17 at 09:58; Status DC Aspirin (Ecotrin Ec) 325 mg DAILY PO Last administered on 06/09/17 14:44; Start 06/09/17 at 13:45; Stop 06/10/17 at 08:09; Status DC Diltiazem HCl (Cardizem Cd) 240 mg DAILY PO Last administered on 06/10/17 08: 54; Start 06/09/17 at 13:45; Stop 06/10/17 at 09:58; Status DC Acetaminophen (Tylenol) 650 mg Q4H PRN PO headaches, pain >5 Last administered on 06/10/17 07:06; Start 06/10/17 at 07:00; Stop 06/10/17 at 09:58; Status DC Apixaban (Eliquis) 5 mg BID PO ; Start 06/10/17 at 09:00; Stop 06/10/17 at 09: 58; Status DC PE at Discharge GENERAL: in NAD but very anxious and upset. CARDIOVASCULAR: Irregular rate irregular rhythm without murmurs, gallops, or rubs. RESPIRATORY: Breath sounds equal bilaterally. No accessory muscle use. GASTROINTESTINAL: Abdomen soft, non-tender, nondistended. MUSCULOSKELETAL: No cyanosis, or edema. BACK: Nontender without obvious deformity. No CVA tenderness. Pt update on day of discharge Follow-up for age of the placement RVR. Telemetry reviewed. Heart rate controlled. Patient very anxious to go home. Deny any chest pain, palpitation, shortness of breathing, lightheadedness dizziness. Discussed with patient's nurse. Hospital Course This is 66-year-old female who presented with intermittent dyspnea for the past 2 weeks done atrial fibrillation with RVR Atrial fibrillation with RVR -Patient given a dose of Cardizem in the ED in which her rate became normal. Cardiac enzymes obtained and they were negative. 2-D echo was obtained reviewed. -She was initially put on heparin drip pending results. Since ACS was not suspected that was discontinued. She was put on short acting Cardizem was later transitioned to long-acting Cardizem in which rate was controlled. -CHADSVASC score was 0 but per generator worker in light of her history of mitral disease, and some degree of mitral stenosis on echo, will treat her with Eliquis. Intermittent dyspnea -Chest x-ray shows cardiomegaly. Patient is not hypoxic. Resolved when her heart rate was controlled. Most likely secondary to age fibrillation with RVR. Pt Condition on Discharge: Stable Discharge Disposition: Discharge Home Discharge Time: <= 30 minutes Discharge Instructions DIET: Follow Instructions for: Heart Healthy Diet Activities you can perform: Regular-No Restrictions Follow up Referrals: Cardiology - 2 Weeks with Brad Castillo MD PCP Follow-up - 1 Week New Medications: Apixaban (Eliquis) 5 Mg Tab 5 MG PO BID for atrial fibrillation, #60 TAB 0 Refills Diltiazem CD 24 HR (Cardizem CD 24 HR) 240 Mg Caper 240 MG PO DAILY for atrial fibrillation, #30 CAP 0 Refills Continued Medications: Multiple Vitamin (Multi-Vitamin Daily) 1 Tab Tab 1 TAB PO DAILY for Nutritional Supplement, TAB 0 Refills Merna Franklin MD Jun 10, 2017 08:59
[2017-06-10] MEDS ORDERED: APIXABAN 5 MG TABLET PO SCH (09:00)
== END 2017-06-10 09:57 | disposition home or self-care (01) | DRG 310 ==
LOC: NEPC 14:13 → NEDA 17:20 → OBSVTOIN 17:20 → HCIS 18:26
PROVIDERS: ADMIT Family Medicine; ATTEND Family Medicine
DX: I48.0 Paroxysmal atrial fibrillation (principal); Z95.2 Presence of prosthetic heart valve; G40.909 Epilepsy, unspecified, not intractable, without status epilepticus; I34.0 Nonrheumatic mitral (valve) insufficiency; Z85.820 Personal history of malignant melanoma of skin; Z86.010 Personal history of colon polyps; Z87.891 Personal history of nicotine dependence
CPT/HCPCS: 71010; 80048; 82550; 82552; 83735; 84443; 84484; 85025; 85610; 85730; 93005; 93306; 96374; 96375; J1644

== ENCOUNTER 2017-12-28 13:43 | Emergency (ER) | payer MEDICARE, OTHER ==
[~2017-12-28] VITALS: Ht 162.6 cm; Wt 52.0 kg
[~2017-12-28 13:43] MED LIST changes: +APIX5TAB PO; +CARD240C6 PO; -CIPR500T4 PO; -HYDR-3533 PO; +MULT-65 PO; -TAB-TAB PO
[2017-12-28 14:06] VITALS: BP 93/55; PULSE 76; RESP 18; TEMP 97.2; O2SAT 98
--- NOTE | 2017-12-28 14:58 | PD ---
HPI Chief Complaint: Cardiac Complaint Time Seen by Provider: 14:39 Travel History International Travel<30 days: No Contact w/Intl Traveler<30days: No Traveled to known affect area: No History of Present Illness HPI The patient is a 67-year-old female who presents to the emergency department for chest pain and palpitations. The patient states she developed palpitations yesterday, felt like her heart was racing at times, then developed some substernal chest pain earlier today. The chest pain was described as dull , achy, nonradiating, and associated with mild shortness of breath. The patient denied any nausea, vomiting, or diaphoresis. The patient does have a history of atrial fibrillation and currently takes Cardizem and Eliquis. The patient also has a history of mitral valve repair. The patient is followed by her machine wood sander, Dr. Castillo. Symptoms are moderate. She does complain of mild exertional symptoms, however, occasionally feels like standing up makes the chest pain and shortness of breath better. She also notes when she leans forward the pain seems to be worse. She denies any associated fever, chills, sweats, or new cough. PFSH Past Medical History Cancer: Yes (SKIN) Cardiovascular Problems: Yes Diabetes: No Diminished Hearing: No Endocrine: No Gastrointestinal Disorders: Yes (POLYPS) Genitourinary: No Hepatitis: No Hiatal Hernia: No Immune Disorder: No Musculoskeletal: No Neurologic: Yes (EPILEPSY HX (20YRS NO INCIDENT)) Psychiatric: No Reproductive: No Respiratory: No Immunizations Current: Yes Thyroid Disease: No : 3 Para: 3 Past Surgical History Abdominal Surgery: Yes (COLLECTOMY) Body Medical Devices: BOVINE MITRAL VALVE Cardiac Surgery: Yes (MVR) Joint Replacement: Yes (RIGHT HIP) Other Surgery: Yes Social History Alcohol Use: Yes (OCC.) Tobacco Use: No (QUIT 2009) Substance Use: No Allergies-Medications (Allergen,Severity, Reaction): Coded Allergies: No Known Allergies (Unverified Adverse Reaction, Unknown, 12/28/17) Reported Meds & Prescriptions Reported Meds & Active Scripts Active Bactrim DS (Sulfamethoxazole-Trimethoprim) 800-160 Mg Tab 1 Tab PO BID Cardizem CD 24 HR (Diltiazem CD 24 HR) 240 Mg Caper 240 Mg PO DAILY Eliquis (Apixaban) 5 Mg Tab 5 Mg PO BID Reported Multi-Vitamin Daily (Multiple Vitamin) 1 Tab Tab 1 Tab PO DAILY Review of Systems Except as stated in HPI: all other systems reviewed are Neg General / Constitutional: No: Fever HENT: No: Lightheadedness Cardiovascular: Positive: Chest Pain or Discomfort, Palpitations, Irregular Rhythm, Dyspnea on exertion, No: Diaphoresis Respiratory: Positive: Shortness of Breath Gastrointestinal: No: Nausea, Vomiting, Abdominal Pain Musculoskeletal: No: Edema Neurologic: No: Dizziness Physical Exam Narrative GENERAL: Awake, alert, pleasant 67-year-old female who appears her stated age and is in no acute respiratory distress. SKIN: Focused skin assessment warm/dry. HEAD: Atraumatic. Normocephalic. EYES: No injection or drainage per ENT: No nasal bleeding or discharge. Mucous membranes pink and moist. NECK: Trachea midline. No JVD. CARDIOVASCULAR: Irregularly irregular, heart rate in the 80s. RESPIRATORY: No accessory muscle use. Clear to auscultation. Breath sounds equal bilaterally. GASTROINTESTINAL: Abdomen soft, non-tender, nondistended. MUSCULOSKELETAL: No obvious deformities. No clubbing. No cyanosis. No edema. Calves are soft bilaterally. NEUROLOGICAL: Awake and alert. No obvious cranial nerve deficits. Motor grossly within normal limits. Normal speech. PSYCHIATRIC: Appropriate mood and affect; insight and judgment normal. Data Data Last Documented VS Vital Signs Date Time Temp Pulse Resp B/P (MAP) Pulse Ox O2 Delivery O2 Flow Rate FiO2 12/28/17 19:22 12/28/17 18:35 65 18 98 Room Air 12/28/17 14:06 97.2 Orders Orders Electrocardiogram (12/28/17 ) B-Type Natriuretic Peptide (12/28/17 14:54) Ckmb (Isoenzyme) Profile (12/28/17 14:54) Complete Blood Count With Diff (12/28/17 14:54) Comprehensive Metabolic Panel (12/28/17 14:54) Magnesium (Mg) (12/28/17 14:54) Prothrombin Time / Inr (Pt) (12/28/17 14:54) Act Partial Throm Time (Ptt) (12/28/17 14:54) Troponin I (12/28/17 14:54) Ecg Monitoring (12/28/17 14:54) Bilateral Bp Monitoring (12/28/17 14:54) Iv Access Insert/Monitor (12/28/17 14:54) Oximetry (12/28/17 14:54) Oxygen Administration (12/28/17 14:54) Aspirin Chew (Aspirin Chew) (12/28/17 15:00) Sodium Chloride 0.9% Flush (Ns Flush) (12/28/17 15:00) Sodium Chlorid 0.9% 500 Ml Inj (Ns 500 M (12/28/17 15:00) Chest, Pa & Lat (12/28/17 14:54) Troponin I (12/28/17 18:29) Urinalysis - C+S If Indicated (12/28/17 17:16) Urine Culture (12/28/17 17:47) Ceftriaxone Inj (Rocephin Inj) (12/28/17 18:15) Ed Discharge Order (12/28/17 19:20) Labs Laboratory Tests Test 12/28/17 15:29 12/28/17 17:47 12/28/17 18:30 White Blood Count 5.8 TH/MM3 Red Blood Count 4.97 MIL/MM3 Hemoglobin 15.5 GM/DL Hematocrit 45.5 % Mean Corpuscular Volume 91.5 FL Mean Corpuscular Hemoglobin 31.2 PG Mean Corpuscular Hemoglobin Concent 34.1 % Red Cell Distribution Width 14.6 % Platelet Count 268 TH/MM3 Mean Platelet Volume 8.6 FL Neutrophils (%) (Auto) 78.1 % Lymphocytes (%) (Auto) 12.4 % Monocytes (%) (Auto) 8.7 % Eosinophils (%) (Auto) 0.3 % Basophils (%) (Auto) 0.5 % Neutrophils # (Auto) 4.6 TH/MM3 Lymphocytes # (Auto) 0.7 TH/MM3 Monocytes # (Auto) 0.5 TH/MM3 Eosinophils # (Auto) 0.0 TH/MM3 Basophils # (Auto) 0.0 TH/MM3 CBC Comment DIFF FINAL Differential Comment Prothrombin Time 11.5 SEC Prothromb Time International Ratio 1.1 RATIO Activated Partial Thromboplast Time 29.3 SEC Blood Urea Nitrogen 18 MG/DL Creatinine 1.05 MG/DL Random Glucose 79 MG/DL Total Protein 6.9 GM/DL Albumin 3.5 GM/DL Calcium Level 8.9 MG/DL Magnesium Level 1.7 MG/DL Alkaline Phosphatase 93 U/L Aspartate Amino Transf (AST/SGOT) 36 U/L Alanine Aminotransferase (ALT/SGPT) 27 U/L Total Bilirubin 0.6 MG/DL Sodium Level 135 MEQ/L Potassium Level 4.3 MEQ/L Chloride Level 104 MEQ/L Carbon Dioxide Level 21.0 MEQ/L Anion Gap 10 MEQ/L Estimat Glomerular Filtration Rate 52 ML/MIN Total Creatine Kinase 76 U/L Troponin I LESS THAN 0.02 NG/ML LESS THAN 0.02 NG/ML B-Type Natriuretic Peptide 137 PG/ML Urine Color YELLOW Urine Turbidity HAZY Urine pH 5.5 Urine Specific [place] 1.016 Urine Protein NEG mg/dL Urine Glucose (UA) NEG mg/dL Urine Ketones 40 mg/dL Urine Occult Blood NEG Urine Nitrite NEG Urine Bilirubin NEG Urine Urobilinogen LESS THAN 2.0 MG/DL Urine Leukocyte Esterase TRACE Urine RBC LESS THAN 1 /hpf Urine WBC 11 /hpf Urine Squamous Epithelial Cells 41 /hpf Urine Bacteria MOD /hpf Urine Mucus FEW /lpf Microscopic Urinalysis Comment CULTURE INDICATED MDM Medical Decision Making Medical Screen Exam Complete: Yes Emergency Medical Condition: Yes Medical Record Reviewed: Yes Interpretation(s) EKG reveals atrial fibrillation with unifocal PVC. Heart rate in the 70s. Last Impressions Chest X-Ray 12/28/17 1454 Signed Impressions: Service Date/Time: Thursday, December 28, 2017 15:07 - CONCLUSION: The lungs are clear. Bryce Bee MD Laboratory Tests Test 12/28/17 15:29 White Blood Count 5.8 TH/MM3 Red Blood Count 4.97 MIL/MM3 Hemoglobin 15.5 GM/DL Hematocrit 45.5 % Mean Corpuscular Volume 91.5 FL Mean Corpuscular Hemoglobin 31.2 PG Mean Corpuscular Hemoglobin Concent 34.1 % Red Cell Distribution Width 14.6 % Platelet Count 268 TH/MM3 Mean Platelet Volume 8.6 FL Neutrophils (%) (Auto) 78.1 % Lymphocytes (%) (Auto) 12.4 % Monocytes (%) (Auto) 8.7 % Eosinophils (%) (Auto) 0.3 % Basophils (%) (Auto) 0.5 % Neutrophils # (Auto) 4.6 TH/MM3 Lymphocytes # (Auto) 0.7 TH/MM3 Monocytes # (Auto) 0.5 TH/MM3 Eosinophils # (Auto) 0.0 TH/MM3 Basophils # (Auto) 0.0 TH/MM3 CBC Comment DIFF FINAL Differential Comment Prothrombin Time 11.5 SEC Prothromb Time International Ratio 1.1 RATIO Activated Partial Thromboplast Time 29.3 SEC Blood Urea Nitrogen 18 MG/DL Creatinine 1.05 MG/DL Random Glucose 79 MG/DL Total Protein 6.9 GM/DL Albumin 3.5 GM/DL Calcium Level 8.9 MG/DL Magnesium Level 1.7 MG/DL Alkaline Phosphatase 93 U/L Aspartate Amino Transf (AST/SGOT) 36 U/L Alanine Aminotransferase (ALT/SGPT) 27 U/L Total Bilirubin 0.6 MG/DL Sodium Level 135 MEQ/L Potassium Level 4.3 MEQ/L Chloride Level 104 MEQ/L Carbon Dioxide Level 21.0 MEQ/L Anion Gap 10 MEQ/L Estimat Glomerular Filtration Rate 52 ML/MIN Total Creatine Kinase 76 U/L Troponin I LESS THAN 0.02 NG/ML B-Type Natriuretic Peptide 137 PG/ML Differential Diagnosis Differential diagnosis includes atrial fibrillation, paroxysmal atrial fibrillation, A. fib with RVR, electrolyte abnormality, acute coronary syndrome , valvular disorder, pericardial effusion, pericarditis, myocarditis, GERD, esophageal spasm, pulmonary embolism. Narrative Course IV was established, labs are drawn and sent, and the patient was placed on cardiac telemetry monitoring and continuous pulse oximetry monitoring. EKG was ordered and interpreted. Chest x-ray was obtained. BNP, troponin, and CPK were sent to lab. The patient was administered aspirin 81 mg orally. The patient's chest x-ray is unremarkable. Troponin is less than 0.02. BNP is minimally elevated at 137. The patient has been in A. fib but rate controlled in the 60s-70s with no evidence of rapid ventricular response. The patient states she had a stress test in 2009 when she underwent open heart surgery, however, does not think she has had a stress test since that time. She is followed by machine wood sander, Dr. Castillo, and an outpatient basis. Therefore, Dr. Castillo was paged at 4:40 PM. I discussed the patient with Dr. Armenta who states the patient can have 2 sets of enzymes and follow-up in Dr. Castillo office or be placed in the chest pain center. Therefore, I had a discussion with the patient regarding both options as she does have atypical symptoms and initial troponin is negative. The patient would prefer to have a second set of enzymes and if negative follow-up with Dr. Castillo on an outpatient basis for a stress test. I believe this is reasonable. The patient is currently asymptomatic. The patient's UA was positive, she was administered Rocephin 1 g intravenously and will be discharged home on Bactrim.The second troponin was less than 0.02, therefore, the patient will follow up with Dr. Castillo on an outpatient basis. Diagnosis Primary Impression: Chest pain Qualified Codes: R07.9 - Chest pain, unspecified Additional Impressions: Atrial fibrillation Qualified Codes: I48.91 - Unspecified atrial fibrillation UTI (urinary tract infection) Qualified Codes: N30.00 - Acute cystitis without hematuria Patient Instructions: General Instructions Additional Instructions: Follow-up with Dr. Castillo in the office for outpatient stress test. Medication as directed. Continue previous medications as directed. Return if symptoms worsen or progress. Med/Other Pt SpecificInfo: Prescription(s) given Scripts Sulfamethoxazole-Trimethoprim (Bactrim DS) 800-160 Mg Tab 1 TAB PO BID for Infection, #6 TAB 0 Refills Prov: Manpreet Acevedo MD 12/28/17 Disposition: DISCHARGE HOME Condition: Stable Manpreet Acevedo MD December 28, 2017 14:58
[2017-12-28] MEDS ORDERED: SODIUM CHLORID 0.9% 500 ML INJ 500 ML IV ONE (15:00)
[2017-12-28] MEDS ORDERED: ASPIRIN 81 MG CHEW TAB PO ONE (15:00)
[2017-12-28] MEDS ORDERED: SODIUM CHLORIDE 0.9% FLUSH 10 ML FLUSH IVF PRN (15:00)
--- NOTE | 2017-12-28 15:23 | RADRPT ---
EXAM DATE/TIME: 12/28/2017 15:07 [facility] COMPARISON: CHEST PA & LAT, January 28, 2016, 10:43. INDICATIONS : Pain and pressure in chest when bending over MEDICAL HISTORY : Cardiovascular disease. light smoker SURGICAL HISTORY : mitral valve replaced ENCOUNTER: Initial ACUITY: 3 days PAIN SCORE: 7/10 LOCATION: Bilateral chest FINDINGS: PA and lateral views of the chest demonstrate the lungs to be symmetrically aerated without evidence of mass, infiltrate or effusion. No evidence of pneumothorax. The cardiomediastinal contours are unr emarkable. Stable mild left lumbar scoliosis. Evidence of prior median sternotomy with intact giraldo al wire sutures.. CONCLUSION: The lungs are clear. Bryce Bee MD on December 28, 2017 at 15:20 Board Certified Radiologist. This report was verified electronically.
[2017-12-28 15:37] VITALS: BP 98/62; PULSE 49; RESP 16; O2SAT 98
[2017-12-28 15:48] LABS: AUTOMATED NEUTROPHIL # 4.6 TH/MM3 (1.8-7.7); BASOPHIL % 0.5 % (0.0-2.0); EOSINOPHIL % 0.3 % (0.0-4.0); HEMATOCRIT 45.5 % (35.0-46.0); HEMOGLOBIN 15.5 GM/DL (11.6-15.3); LYMPH % 12.4 % (9.0-44.0); LYMPHOCYTE # 0.7 TH/MM3 (1.0-4.8); MEAN CELL VOLUME 91.5 FL (80.0-100.0); MEAN CORPUSCULAR HEMOGLOBIN 31.2 PG (27.0-34.0); MEAN CORPUSCULAR HGB CONC 34.1 % (32.0-36.0); MEAN PLATELET VOLUME 8.6 FL (7.0-11.0); MONO % 8.7 % (0.0-8.0); MONOCYTE # 0.5 TH/MM3 (0-0.9); NEUT % 78.1 % (16.0-70.0); PLATELET COUNT 268 TH/MM3 (150-450); RED BLOOD COUNT 4.97 MIL/MM3 (4.00-5.30); RED CELL DISTRIBUTION WIDTH 14.6 % (11.6-17.2); WHITE BLOOD COUNT 5.8 TH/MM3 (4.0-11.0)
[2017-12-28 16:01] LABS: ALT (GPT) 27 U/L (10-53)
[2017-12-28 16:04] LABS: INTERNATIONAL NORMALIZED RATIO 1.1 RATIO; PROTHROMBIN TIME - PATIENT 11.5 SEC (9.8-11.6)
[2017-12-28 16:12] LABS: ALBUMIN 3.5 GM/DL (3.4-5.0); ALKALINE PHOSPHATASE 93 U/L (45-117); AST (GOT) 36 U/L (15-37); BLOOD UREA NITROGEN 18 MG/DL (7-18); CALCIUM 8.9 MG/DL (8.5-10.1); CHLORIDE 104 MEQ/L (98-107); CREATININE 1.05 MG/DL (0.50-1.00); GLOMERULAR FILTRATION RATE 52 ML/MIN (>89); GLUCOSE,RANDOM 79 MG/DL (74-106); MAGNESIUM 1.7 MG/DL (1.5-2.5); SODIUM (NA) 135 MEQ/L (136-145); TOTAL BILIRUBIN ADULT 0.6 MG/DL (0.2-1.0); TOTAL PROTEIN 6.9 GM/DL (6.4-8.2); TROPONIN I LESS THAN 0.02 NG/ML (0.02-0.05)
[2017-12-28 16:57] VITALS: BP 102/71; PULSE 66; RESP 24; O2SAT 98
[2017-12-28 18:00] LABS: BACTERIA, URINE MOD /hpf; BILIRUBIN, URINE NEG (NEG); BLOOD, URINE NEG (NEG); GLUCOSE,URINE NEG (NEG); KETONE, URINE 40 mg/dL (NEG); MUCUS URINE FEW /lpf (OCC); NITRITE,URINE NEG (NEG); PH, URINE 5.5 (5.0-8.5); SQUAMOUS EPITHELIAL CELL URINE 41 /hpf (0-5); URINE COLOR YELLOW (YELLW/STRAW); URINE LEUKOCYTE ESTERASE TRACE (NEG)
[2017-12-28] MEDS ORDERED: cefTRIAXone INJ 1,000 MG in SODIUM CHLORIDE 0.9% INJ 100 ML IV ONE (18:15)
[2017-12-28] MEDS ORDERED: BACT800T5 PO (18:22)
[2017-12-28 18:35] VITALS: BP 101/63; PULSE 65; RESP 18; O2SAT 98
--- NOTE | 2017-12-29 09:56 | EKG ---
Date Performed: 12/28/2017 Time Performed: 14:13:52 PTAGE: 67 years EKG: ATRIAL FIBRILLATION WITH ABERRANT CONDUCTION OR VENTRICULAR PREMATURE COMPLEXES BORDERLINE RIGHT AXIS DEVIATION ABNORMAL RHYTHM ECG PREVIOUS TRACING 06/08/17 Ventricular rate better controlled from the prior tracing. DOCTOR: Silverio Farrell Interpretating Date/Time 12/29/2017 09:54:48
== END 2017-12-28 19:35 | disposition home or self-care (01) ==
LOC: NEPC 13:43
DX: R07.9 Chest pain, unspecified (principal); I48.91 Unspecified atrial fibrillation; N30.00 Acute cystitis without hematuria; R06.02 Shortness of breath; Z79.01 Long term (current) use of anticoagulants; Z87.891 Personal history of nicotine dependence
CPT/HCPCS: 71046; 80053; 81001; 82550; 83735; 83880; 84484; 85025; 85610; 85730; 87086; 93005; 96361; 96365; 99285; J0696; J7040